=== PATIENT | male | born 1990 | race African-American/Black ===

== ENCOUNTER 2018-08-03 15:13 | Emergency (ER) | payer OTHER, SELFPAY ==
[2018-08-03 15:23] VITALS: BP 139/89; PULSE 89; RESP 20; TEMP 36.7; O2SAT 97
[2018-08-03 15:55] LABS: Influenza A and B by PCR Rapid Negative (Negative)
--- NOTE | 2018-08-03 18:22 | ED.FEVER ---
HPI - Fever <Joycelyn Tran PA-C - Last Filed: 08/03/18 22:01> General Chief Complaint: Fever Stated Complaint: DRY COUGH SORE THROAT THINKS FLU Time Seen by Provider: 08/03/18 17:30 Source: patient Mode of arrival: ambulatory Limitations: no limitations History of Present Illness HPI Narrative: This healthy 28-year-old male comes in due to upper respiratory symptoms. He does have a history of mild asthma where he has occasionally needed inhaler though not for several years. He states on Friday he started to have body aches, headache, runny nose and fatigue along with dry cough, nasal congestion and drainage, and sore throat. He states he feels somewhat short of breath and tight with coughing spells, generally not at other times. He has not noted wheeze. He has not had fever. No specific exposures. No recent travel. Related Data Previous Rx's Medication Instructions Recorded albuterol sulfate 2 inhalation INHALATION Q4H PRN 08/03/18 #8.5 gram meloxicam 15 mg PO DAILY #14 tab 08/03/18 Review of Systems <Joycelyn Tran PA-C - Last Filed: 08/03/18 22:01> Review of Systems ROS Unobtainable: All systems reviewed & are unremarkable except as noted in HPI and below PFSH <Joycelyn Tran PA-C - Last Filed: 08/03/18 22:01> Medical History Mild asthma (Chronic) No pertinent family history (Chronic) Surgical History No pertinent past surgical history (Chronic) Social History Smoking Status: Never smoker Social History Smoking Status: Never smoker Exam <Joycelyn Tran PA-C - Last Filed: 08/03/18 22:01> Narrative Exam Narrative: GENERAL APPEARANCE: Patient sitting comfortably, in no distress. HEAD: No sinus TTP. EYES: PERRL, EOMI. EARS: Normal auditory canals, TMS occluded by cerumen bilaterally ORAL CAVITY: Normal oropharynx. THROAT: moderate erythema without exudate NECK/THYROID: Neck supple, full range of motion, no cervical lymphadenopathy. LUNGS: Clear to auscultation bilaterally, occasional coarse cough on exam. HEART: RRR without murmur, nl S1, S2, no S3 or S4. DERMATOLOGIC: No exanthem Initial Vital Signs Initial Vital Signs: Vital Signs Temperature 98.1 F 08/03/18 15:23 Pulse Rate 89 08/03/18 15:23 Respiratory Rate 20 08/03/18 15:23 Blood Pressure 139/89 08/03/18 15:23 Pulse Oximetry 97 08/03/18 15:23 <DO Hal Austin Last Filed: 08/04/18 03:47> Initial Vital Signs Initial Vital Signs: Vital Signs Temperature 98.1 F 08/03/18 15:23 Pulse Rate 89 08/03/18 15:23 Respiratory Rate 20 08/03/18 15:23 Blood Pressure 139/89 08/03/18 15:23 Pulse Oximetry 97 08/03/18 15:23 Course <Joycelyn Tran PA-C - Last Filed: 08/03/18 22:01> Orders Ordered: ED Orders 08/03/18 15:26 Influenza A and B by PCR Rapid Stat Vital Signs - 8 hr 08/03/18 15:23 08/03/18 18:56 Temperature 98.1 F 97.5 F L Pulse Rate 89 87 Respiratory Rate 20 18 Blood Pressure 139/89 130/88 Pulse Oximetry 97 98 <DO Hal Austin Last Filed: 08/04/18 03:47> Orders Ordered: ED Orders 08/03/18 15:26 Influenza A and B by PCR Rapid Stat Vital Signs - 8 hr 08/03/18 15:23 08/03/18 18:56 Temperature 98.1 F 97.5 F L Pulse Rate 89 87 Respiratory Rate 20 18 Blood Pressure 139/89 130/88 Pulse Oximetry 97 98 MDM - Fever <DANIELLA Shukla Last Filed: 08/03/18 22:01> Lab Data Lab Results 08/03/18 Range/Units 15:26 Influenza A & B (PCR) Negative (Negative) <DO Hal Austin Last Filed: 08/04/18 03:47> Lab Data Lab Results 08/03/18 Range/Units 15:26 Influenza A & B (PCR) Negative (Negative) Discharge Plan Departure Patient Disposition: Home Clinical Impression: Upper respiratory infection, viral Discharge Date/Time: 08/03/18 18:56 Interventions: ED Discharge Assessment Last Done: 08/03/18 18:56 Instructions: DI for Asthma -- Adult, DI for Viral Upper Respiratory Infection -- Adult Activity Restrictions/Additional Instructions: Please return as we talked about if you have any acutely worsening symptoms. please stay off work for the next couple of days until your cough is better as this is likely infectious. Please use your albuterol inhaler as often as needed for cough and tight chest. I have also prescribed a once daily anti-inflammatory pain reliever for you to help with body aches since ibuprofen does not seem to work for you. follow-up with your PCP if you are not feeling better by next week Prescriptions: New meloxicam 15 mg tablet 15 mg PO DAILY Qty: 14 RF: 0 albuterol sulfate 90 mcg/actuation HFA aerosol inhaler 2 inhalation INHALATION Q4H PRN (Reason: cough and tight chest) Qty: 8.5 RF: 0 Referrals: [facility] [Provider Group] Stand Alone Forms: Work Release Note <Dao Wang DO - Last Filed: 08/04/18 03:47> Cosign ED Attending Tannerature Attestation: I was immediately available in the department for consultation. Documentation has been reviewed. I agree with assessment and plan.
[2018-08-03 18:56] VITALS: BP 130/88; PULSE 87; RESP 18; TEMP 36.4; O2SAT 98
== END 2018-08-03 18:56 | disposition home or self-care (01) ==
PROVIDERS: Emergency Provider Internal Medicine
DX: J06.9 Acute upper respiratory infection, unspecified (principal)
CPT/HCPCS: 87400; 99282; 99283